=== PATIENT | male | born 1960 | race African-American/Black ===

== ENCOUNTER 2024-03-11 16:43 | Emergency (ER) | payer BC, MEDICAID ==
[~2024-03-11] VITALS: Ht 175.3 cm; Wt 82.0 kg
[2024-03-11 16:48] VITALS: O2SAT 99
[2024-03-11] MEDS: TETANUS, DIPHTHERIA, PERTUSSIS VAC/PF 0.5ML (>10YR OLD) IM ONE (18:23)
[2024-03-11] MEDS ORDERED: BO1 TP (18:32)
[2024-03-11] MEDS ORDERED: IBUP-2028 MT (18:33)
[2024-03-11] MEDS: SILVER NITRATE APPLICATOR STICK TOP ONE (18:41)
[2024-03-11] MEDS: LIDOCAINE HCL 1% 20ML VIAL INFIL ONE (18:41)
[2024-03-11 18:46] VITALS: BP 135/88; PULSE 92; RESP 18; TEMP 37.16964; O2SAT 99
== END 2024-03-11 18:47 | disposition home or self-care (01) ==
LOC: ER 16:43
DX: S61.412A Laceration without foreign body of left hand, initial encounter (principal); I10 Essential (primary) hypertension; F41.9 Anxiety disorder, unspecified; X99.1XXA Assault by knife, initial encounter; Y93.89 Activity, other specified; Y92.89 Other specified places as the place of occurrence of the external cause; Y99.8 Other external cause status
CPT/HCPCS: 99283; 90715; 12004; 90471; J3490